=== PATIENT | female | born 1985 | race Caucasian/White ===

== ENCOUNTER 2022-02-16 08:39 | Outpatient (CLI) | payer OTHER, SELFPAY ==
[2022-02-16 12:26] LABS: Cholesterol* 141 mg/dL (90-199); Glucose* 97 mg/dL (60-115); Triglycerides* 110 mg/dL (40-149)
[2022-02-16 12:27] LABS: HDL Cholesterol* 39 mg/dL (>=50); LDL Cholesterol Calculated 80 mg/dL (<100)
== END 2022-02-16 08:40 | disposition home or self-care (01) ==
PROVIDERS: Visit Provider Physician Assistant
DX: Z01.419 Encounter for gynecological examination (general) (routine) without abnormal findings (principal); E66.9 Obesity, unspecified; Z13.6 Encounter for screening for cardiovascular disorders; Z13.1 Encounter for screening for diabetes mellitus
CPT/HCPCS: 80061; 82947; 84443; 87491; 87591

== ENCOUNTER 2023-08-02 08:59 | Outpatient (CLI) | payer OTHER, SELFPAY | END 2023-08-02 09:00 | disposition home or self-care (01) | PROVIDERS: PCP Physician Assistant; Visit Provider Physician Assistant | DX: E66.9 Obesity, unspecified (principal); Z13.29 Encounter for screening for other suspected endocrine disorder | CPT/HCPCS: 84443 ==